=== PATIENT | male | born 1995 | race Caucasian/White ===

== ENCOUNTER 2017-11-16 20:27 | Emergency (ER) | payer BC ==
--- NOTE | 2017-11-16 21:15 | ERPHSYRPT ---
- History of Present Illness Time Seen by Provider: 11/16/17 21:08 Source: patient Exam Limitations: no limitations Patient Subjective Stated Complaint: Pt arrives to Er with c/o laceration to right forearm states was twirling sword when it slipped and landed on his posterior right forearm with 5cm x2cm laceration Triage Nursing Assessment: PMS intact Physician History: The patient is a 22-year-old right-handed male with his mother complaining that while twirling his double-edged sword, it slipped and fell onto his right forearm, causing a laceration. He denies numbness or tingling. He is able to move all of his fingers and hand in all directions without difficulty. He does not know when his last tetanus vaccination was given. Timing/Duration: today, hour(s) (1), gradual onset Quality: other (laceration) Severity: moderate Location: extremities (right forearm) Possible Causes: other (sword) Associated Symptoms: denies symptoms Allergies/Adverse Reactions: No Known Drug Allergies Allergy (Unverified 11/16/17 20:53) Home Medications: Dextroamphetamine/Amphetamine [Adderall 20 mg Tablet] 20 mg PO 11/16/17 [History ] Hx Tetanus, Diphtheria Vaccination/Date Given: No (over 10 years per mom) - Review of Systems Constitutional: No Fever, No Chills Eyes: No Symptoms Ears, Nose, & Throat: No Symptoms Respiratory: No Cough, No Dyspnea Cardiac: No Chest Pain, No Edema, No Syncope Abdominal/Gastrointestinal: No Abdominal Pain, No Nausea, No Vomiting, No Diarrhea Genitourinary Symptoms: No Dysuria Musculoskeletal: No Back Pain, No Neck Pain Skin: Other (laceration) Neurological: No Dizziness, No Focal Weakness, No Sensory Changes Psychological: No Symptoms Endocrine: No Symptoms Hematologic/Lymphatic: No Symptoms Immunological/Allergic: No Symptoms All Other Systems: Reviewed and Negative - Past Medical History Pertinent Past Medical History: No Neurological History: No Pertinent History ENT History: No Pertinent History Cardiac History: No Pertinent History Respiratory History: No Pertinent History Endocrine Medical History: No Pertinent History Musculoskeletal History: No Pertinent History GI Medical History: No Pertinent History History: No Pertinent History Psycho-Social History: No Pertinent History Male Reproductive Disorders: No Pertinent History - Past Surgical History Past Surgical History: Yes Neuro Surgical History: No Pertinent History Cardiac: No Pertinent History Respiratory: No Pertinent History Gastrointestinal: No Pertinent History Genitourinary: No Pertinent History Musculoskeletal: Orthopedic Surgery Male Surgical History: No Pertinent History Other Surgical History: right shoulder ligament repair - Social History Smoking Status: Never smoker Exposure to second hand smoke: No Drug Use: none Patient Lives Alone: No - Nursing Vital Signs Nursing Vital Signs: Initial Vital Signs Temperature 98.6 F 11/16/17 20:47 Pulse Rate 77 11/16/17 20:47 Respiratory Rate 20 11/16/17 20:47 Blood Pressure 117/88 11/16/17 20:47 O2 Sat by Pulse Oximetry 98 11/16/17 20:47 Pain Scale Pain Intensity 4 - Physical Exam General Appearance: no apparent distress, alert Eye Exam: PERRL/EOMI, eyes nml inspection Ears, Nose, Throat Exam: normal ENT inspection, pharynx normal, moist mucous membranes Neck Exam: normal inspection, non-tender, supple, full range of motion Respiratory Exam: normal breath sounds, lungs clear, No respiratory distress Cardiovascular Exam: regular rate/rhythm, normal heart sounds Gastrointestinal/Abdomen Exam: soft, mass, No tenderness Rectal Exam: not done Back Exam: normal inspection, normal range of motion, No CVA tenderness, No vertebral tenderness Extremity Exam: normal inspection, normal range of motion Neurologic Exam: alert, oriented x 3, cooperative, normal mood/affect, sensation nml, No motor deficits Skin Exam: laceration (5 cm linear lac to mid right forearm) SpO2 Interpretation: normal SpO2: 98 Oxygen Delivery: Room Air Procedures - Laceration/Wound Repair Right Arm Wound Location: Right, lower arm Wound Length (cm): 5 Wound's Depth, Shape: superficial, linear Wound Explored: clean Irrigated: No Hibiclens Prep: No Volume Anesthetic (ccs): 18 Wound Repaired With: sutures Suture Size/Type: 4-0, ethilon Number of Sutures: 7 Layer Closure?: No Sterile Dressing Applied?: Yes Splint Applied?: No Sling Applied?: No - Radiology Exams Right Forearm X-ray Interpretation: Interpreted by me, Negative, No Fracture Ordered Tests: Active Orders 24 hr Category Date Time Status Wound Care STAT Care 11/16/17 21:18 Active FOREARM Stat Exams 11/16/17 22:41 Taken Medication Summary Discontinued Medications Generic Name Dose Route Start Last Admin Trade Name Freq PRN Reason Stop Dose Admin Amoxicillin/Clavulanate Potassium 875 mg 11/16/17 22:42 11/16/17 22:53 Augmentin 875-125 Tablet PO 11/16/17 22:43 875 mg STAT ONE Administration Amoxicillin/Clavulanate Potassium Confirm 11/16/17 22:46 Augmentin 875-125 Tablet Administered 11/16/17 22:47 Dose 875 mg .ROUTE .STK-MED ONE Bacitracin Zinc Confirm 11/16/17 22:39 Baciguent Packet Administered 11/16/17 22:40 Dose 1 gm .ROUTE .STK-MED ONE Bacitracin Zinc 0.9 gm 11/16/17 22:45 11/16/17 22:53 Baciguent Packet TP 11/16/17 22:46 0.9 gm STAT ONE Administration Diphtheria/Tetanus/Acell Pertussis 0.5 ml 11/16/17 21:19 11/16/17 21:37 Adacel Vial IM 11/16/17 21:20 0.5 ml .ONCE ONE Administration Diphtheria/Tetanus/Acell Pertussis Confirm 11/16/17 21:32 Adacel Vial Administered 11/16/17 21:33 Dose 0.5 ml IM .STK-MED ONE Ketorolac Tromethamine 60 mg 11/16/17 22:42 11/16/17 22:53 Toradol 30 Mg Injection IM 11/16/17 22:43 60 mg STAT ONE Administration Ketorolac Tromethamine Confirm 11/16/17 22:46 Toradol 30 Mg Injection Administered 11/16/17 22:47 Dose 60 mg .ROUTE .STK-MED ONE Lidocaine HCl 5 ml 11/16/17 21:18 11/16/17 21:44 Xylocaine 1% Hcl 20 Ml Mdv IJ 11/16/17 21:19 5 ml STAT ONE Administration Lidocaine HCl Confirm 11/16/17 21:30 Xylocaine 1% Hcl 20 Ml Mdv Administered 11/16/17 21:31 Dose 20 ml .ROUTE .STK-MED ONE - Progress Progress: improved Counseled pt/family regarding: diagnosis, need for follow-up, rad results - Departure Time of Disposition: 23:12 Departure Disposition: Home Clinical Impression: Laceration of right forearm Condition: Stable Critical Care Time: No Referrals: VANDA HERNANDEZ [Primary Care Provider] - Additional Instructions: You had a laceration to your right forearm that was repaired with 7 sutures in the ER. You were given Toradol 60 mg by IM, a tetanus vaccination, and 1 Augmentin 875 oral tablet in the ER. Continue with Augmentin 875 one tablet 2 times a day for 10 days. Take Tylenol and ibuprofen as needed for pain. Follow -up with your primary medical doctor for suture removal in 12-14 days. If you are having any unusual problems, that is difficulty with moving your right wrist or fingers, please contact your primary medical doctor or return to the ER for further evaluation. Prescriptions: Amoxicillin/Potassium Clav [Augmentin 875-125 Tablet] 1 each PO BID #20 tablet
[2017-11-16] MEDS ORDERED: XYLOCAINE 1% HCL 20 ML MDV ONE (21:30)
[2017-11-16] MEDS ORDERED: Adacel Vial IM ONE (21:32)
[2017-11-16] MEDS: Adacel Vial IM ONE (21:37)
[2017-11-16] MEDS: XYLOCAINE 1% HCL 20 ML MDV IJ ONE (21:44)
[2017-11-16] MEDS ORDERED: BACIGUENT PACKET ONE (22:39)
[2017-11-16] MEDS ORDERED: Augmentin 875-125 Tablet ONE (22:46)
[2017-11-16] MEDS ORDERED: TORAdol 30 mg Injection ONE (22:46)
[2017-11-16] MEDS: Augmentin 875-125 Tablet PO ONE (22:53)
[2017-11-16] MEDS: TORAdol 30 mg Injection IM ONE (22:53)
[2017-11-16] MEDS: BACIGUENT PACKET TP ONE (22:53)
[2017-11-16 23:56] VITALS: BP 137/84; PULSE 66; O2SAT 96
--- NOTE | 2017-11-17 09:28 | XRAY ---
Indication: Laceration. Comparison: None 2 views of the right forearm demonstrates distal soft tissue swelling/laceration with overlying bandage material. No other bony, articular, or soft tissue abnormalities.
== END 2017-11-16 23:50 | disposition home or self-care (01) ==
LOC: ED 20:27
PROC: 0HQDXZZ Repair Right Lower Arm Skin, External Approach (ICD-10-PCS; principal; 2017-11-16)
DX: S51.811A Laceration without foreign body of right forearm, initial encounter (principal); W26.1XXA Contact with sword or dagger, initial encounter
CPT/HCPCS: 12002; 73090; 90471; 90715; 96372; 99284; J1885; A9270-GY